=== PATIENT | female | born 1950 | race African-American/Black ===

== ENCOUNTER 2017-03-06 15:47 | Inpatient (IN) | payer MEDICARE, OTHER ==
[~2017-03-06] VITALS: Ht 172.7 cm; Wt 59.0 kg
[2017-03-06] MEDS ORDERED: [UNRECOGNIZED DRUG - REMARK] (16:30)
[2017-03-06 18:05] VITALS: BP 117/74
[2017-03-06 18:24] LABS: BASOPHILS % (AUTO) 0.6 % (0.0-2.0); EOSINOPHILS % (AUTO) 0.1 % (0.0-3.0); LYMPHOCYTES % (AUTO) 18.9 % (20.0-45.0); MEAN CORPUSCULAR HEMOGLOBIN 31.9 PG (27.0-31.0); MEAN CORPUSCULAR HGB CONC 35.2 G/DL (32.0-36.0); MEAN CORPUSCULAR VOLUME 91 FL (80-99); MEAN PLATELET VOLUME 9.6 FL (6.5-10.1); NEUTROPHILS % (AUTO) 71.4 % (45.0-75.0); PLATELET COUNT 285 K/UL (150-450); RED CELL DISTRIBUTION WIDTH 13.3 % (11.6-14.8); WHITE BLOOD COUNT 17.1 K/UL (4.8-10.8)
[2017-03-06 18:39] LABS: CALCIUM 8.9 mg/dL (8.6-10.2); CREATININE 1.2 mg/dL (0.5-0.9); GLOMERULAR FILTRATION RATE 54.9 mL/min (>60); POTASSIUM 4.8 mEQ/L (3.4-4.9); TOTAL PROTEIN 7.1 g/dL (6.6-8.7)
[2017-03-06 18:40] LABS: TROPONIN I < 0.30 ng/mL (<=0.30)
[2017-03-06 18:49] LABS: CKMB 3.2 ng/mL (< 3.8)
--- NOTE | 2017-03-06 19:10 | Emergency Room Report ---
History of Present Illness General Chief Complaint: Generalized Weakness Source: Patient Present Illness HPI 66YOF BIBEMS for "falling out." Friends called EMS because "she hasnt been doing well." Homeless. ?recent incaceration - has wristband Denies PMHx Not eating, drinking Denies trauma Denies ETOH, drug use Allergies: Coded Allergies: No Known Allergies (Unverified , 03/06/17) Patient History Past Medical History: none Past Surgical History: none Pertinent Family History: none Social History: Denies: alcohol use, drug use, smoking Last Menstrual Period: na Now: No Immunizations: UTD Reviewed Nursing Documentation: PMH: Agreed, PSxH: Agreed Nursing Documentation-PMH Past Medical History: No History, Except For Hx Diabetes: Yes Review of Systems All Other Systems: negative except mentioned in HPI Physical Exam Vital Signs Date Time Temp Pulse Resp B/P Pulse Ox O2 Delivery O2 Flow Rate FiO2 03/06/17 15:42 98.4 76 16 132/78 98 Room Air Sp02 EP Interpretation: reviewed, normal General Appearance: normal inspection, well appearing, no apparent distress, alert, non-toxic Head: normocephalic, atraumatic Eyes: bilateral eye EOMI, bilateral eye PERRL ENT: normal ENT inspection, hearing grossly normal, normal voice Neck: normal inspection, full range of motion, supple, no bony tend Respiratory: normal inspection, lungs clear, normal breath sounds, no respiratory distress, no retraction, no wheezing Cardiovascular #1: regular rate, rhythm, no edema Gastrointestinal: normal inspection, normal bowel sounds, non tender, soft, no guarding, no hernia Genitourinary: no CVA tenderness Musculoskeletal: normal inspection, back normal, normal range of motion, Omer' s Sign negative Neurologic: normal inspection, alert, oriented x3, responsive, 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 Afebrile Not systemically sick Leuks 17k No obvious PNA Mild EVIN Hasnt given urine Capitated to [facility] Admitted to Dr Garcia for transfer med/surg at 710pm Advised HOLD on empiric Abx EKG Diagnostic Results Rate: normal Rhythm: NSR ST Segments: no acute changes ASA given to the pt in ED: No Rhythm Strip Diag. Results EP Interpretation: yes Rate: 99 Rhythm: NSR, no PVC's, no ectopy Chest X-Ray Diagnostic Results Chest X-Ray Diagnostic Results : Chest X-Ray Ordered: Yes # of Views/Limited/Complete: 1 View Indication: Other - weakness EP Interpretation: Yes Interpretation: no consolidation, no effusion, no pneumothorax, no acute cardiopulmonary disease Impression: No acute disease Interpreting ER Provider: Electronically signed by Dr Zamora Last Vital Signs Date Time Temp Pulse Resp B/P Pulse Ox O2 Delivery O2 Flow Rate FiO2 03/06/17 18:05 98.3 89 12 117/74 100 Room Air Status: improved Disposition: ADMITTED INPATIENT Condition: Serious Referrals: NOT CHOSEN ANNEMARIE/,REFERRING (PCP) DASHA ZAMORA M.D. Mar 06, 2017 19:10
[2017-03-06] MEDS ORDERED: cefTRIAXone 1 GM in NS 55 ML IVPB ONE (20:15)
--- NOTE | 2017-03-06 21:25 | History and Physical ---
History of Present Illness General Date patient seen: Mar 06, 2017 Reason for Hospitalization: Generalized Weakness Present Illness HPI 66 year old female with hx of homelessness, street drug abuse, was brought in by paramedics because apparently she was feeling week. She was found to have severe leuckocytosis secondary to sepsis and admitted for further work up. she looks chronically ill and malnourished, cachectic. Allergies: Coded Allergies: No Known Allergies (Unverified , 03/06/17) Medication History Miscellaneous Medications [diabetes pill], (Reported) Patient History Healthcare decision maker Resuscitation status Advanced Directive on File Past Medical/Surgical History Past Medical/Surgical History: (1) Diabetes mellitus (2) Drug abuse Review of Systems All Other Systems: negative except mentioned in HPI Physical Exam General Appearance: cachetic Lines, tubes and drains: peripheral HEENT: normocephalic, atraumatic Neck: non-tender, normal alignment Respiratory/Chest: chest wall non-tender, lungs clear Cardiovascular/Chest: normal peripheral pulses, normal rate Abdomen: normal bowel sounds, non tender Extremities: normal range of motion Last 24 Hour Vital Signs Date Time Temp Pulse Resp B/P Pulse Ox O2 Delivery O2 Flow Rate FiO2 03/06/17 18:05 98.3 89 12 117/74 100 Room Air 03/06/17 15:42 98.4 76 16 132/78 98 Room Air Laboratory Tests Test 03/06/17 18:03 White Blood Count 17.1 K/UL (4.8-10.8) H Red Blood Count 3.50 M/UL (4.20-5.40) L Hemoglobin 11.2 G/DL (12.0-16.0) L Hematocrit 31.7 % (37.0-47.0) L Mean Corpuscular Volume 91 FL (80-99) Mean Corpuscular Hemoglobin 31.9 PG (27.0-31.0) H Mean Corpuscular Hemoglobin Concent 35.2 G/DL (32.0-36.0) Red Cell Distribution Width 13.3 % (11.6-14.8) Platelet Count 285 K/UL (150-450) Mean Platelet Volume 9.6 FL (6.5-10.1) Neutrophils (%) (Auto) 71.4 % (45.0-75.0) Lymphocytes (%) (Auto) 18.9 % (20.0-45.0) L Monocytes (%) (Auto) 9.0 % (1.0-10.0) Eosinophils (%) (Auto) 0.1 % (0.0-3.0) Basophils (%) (Auto) 0.6 % (0.0-2.0) Sodium Level 134 mEQ/L (135-145) L Potassium Level 4.8 mEQ/L (3.4-4.9) Chloride Level 91 mEQ/L (98-107) L Carbon Dioxide Level 21 mEQ/L (20-30) Anion Gap 22 (5-15) H Blood Urea Nitrogen 29 mg/dL (7-23) H Creatinine 1.2 mg/dL (0.5-0.9) H Estimat Glomerular Filtration Rate 54.9 mL/min (>60) Glucose Level 167 mg/dL (74-106) H Calcium Level 8.9 mg/dL (8.6-10.2) Total Bilirubin 0.4 mg/dL (0.0-1.2) Aspartate Amino Transf (AST/SGOT) 32 U/L (5-40) Alanine Aminotransferase (ALT/SGPT) 13 U/L (3-33) Alkaline Phosphatase 62 U/L (35-104) Total Creatine Kinase 314 U/L (26-140) H Creatine Kinase MB 3.2 ng/mL (< 3.8) Creatine Kinase MB Relative Index 1.0 Troponin I < 0.30 ng/mL (<=0.30) Total Protein 7.1 g/dL (6.6-8.7) Albumin 3.7 g/dL (3.5-5.2) Globulin 3.4 g/dL Albumin/Globulin Ratio 1.0 (1.0-2.7) Height (Feet): 5 Height (Inches): 8.00 Weight (Pounds): 130 Medications Current Medications Medications (Trade) Dose Ordered Sig/Farzaneh Route PRN Reason Start Time Stop Time Status Last Admin Dose Admin Sodium Chloride (Sodium Chloride 1000ml bag) 1,000 ml @ 999 mls/hr Q1H1M ONCE IV 03/06/17 21:30 03/06/17 22:30 Assessment/Plan Problem List: (1) Sepsis ICD Codes: A41.9 - Sepsis, unspecified organism SNOMED: 41133838 (2) Protein-calorie malnutrition, severe ICD Codes: E43 - Unspecified severe protein-calorie malnutrition SNOMED: 746287457 (3) Diabetes mellitus ICD Codes: E11.9 - Type 2 diabetes mellitus without complications SNOMED: 05580397 (4) Drug abuse ICD Codes: F19.10 - Other psychoactive substance abuse, uncomplicated SNOMED: 72573362 (5) Homelessness ICD Codes: Z59.0 - Homelessness SNOMED: 67655380 Assessment/Plan robb culture IV antibiotics check for HIV, and hepatitis pt/ot YYAO BLACKMAN Mar 06, 2017 21:25
[2017-03-06] MEDS ORDERED: Morphine Sulfate 2mg/ml Inj IVP PRN (21:30)
[2017-03-06] MEDS ORDERED: Nitroglycerin Subl 0.4mg tab (Bottle Of 25) SL PRN (21:30)
[2017-03-06] MEDS ORDERED: DuoNeb 0.5-3(2.5)mg/3ml neb HHN PRN (21:30)
[2017-03-06] MEDS ORDERED: Miralax 17gm pkt ORAL PRN (21:30)
[2017-03-06 21:46] LABS: APPEARANCE,URINE CLEAR; KETONES,URINE 4+ (NEGATIVE); LEUKOCYTE ESTERASE ,URINE 1+ (NEGATIVE); NITRITE,URINE NEGATIVE (NEGATIVE); PH,URINE 5 (4.5-8.0); PROTEIN,URINE 1+ (NEGATIVE); UROBILINOGEN,URINE 1 MG/DL (0.0-1.0)
[2017-03-06 21:58] LABS: BACTERIA,URINE FEW /HPF; SQUAMOUS EPITHELIAL CELL,UR OCCASIONAL /LPF (NONE/OCC); WBC,URINE 0-2 /HPF (0 - 2)
[2017-03-06] MEDS ORDERED: Vancomycin 1gm/D5W 275ml IVPB ONE ×2 (22:00)
[2017-03-06 22:42] VITALS: BP 120/76
[2017-03-07] VITALS (7 sets, daily range): BP systolic 118–123; BP diastolic 52–79
[2017-03-07] MEDS ORDERED: Cefepime 2gm ONE (01:42)
[2017-03-07] MEDS ORDERED: Vancomycin 1gm inj IVPB ONE (01:42)
[2017-03-07] MEDS: Vancomycin 1 GM in D5W 275 ML IVPB SCH ×2 (01:54→02:57)
[2017-03-07 04:55] LABS: BASOPHILS % (AUTO) 0.4 % (0.0-2.0); EOSINOPHILS % (AUTO) 0.1 % (0.0-3.0); LYMPHOCYTES % (AUTO) 20.3 % (20.0-45.0); MEAN CORPUSCULAR HGB CONC 34.2 G/DL (32.0-36.0); MEAN CORPUSCULAR VOLUME 91 FL (80-99); MEAN PLATELET VOLUME 9.8 FL (6.5-10.1); MONOCYTES % (AUTO) 8.8 % (1.0-10.0); NEUTROPHILS % (AUTO) 70.4 % (45.0-75.0); PLATELET COUNT 298 K/UL (150-450); RED BLOOD COUNT 3.38 M/UL (4.20-5.40); RED CELL DISTRIBUTION WIDTH 13.3 % (11.6-14.8); WHITE BLOOD COUNT 14.8 K/UL (4.8-10.8)
[2017-03-07 05:16] LABS: ALANINE AMINOTRANSFERASE 9 U/L (3-33); ANION GAP 19 (5-15); ASPARTATE AMINO TRANSFERASE 18 U/L (5-40); CARBON DIOXIDE 23 mEQ/L (20-30); CHLORIDE 98 mEQ/L (98-107); CREATININE 1.1 mg/dL (0.5-0.9); GLOMERULAR FILTRATION RATE > 60 mL/min (>60); HEMOLYSIS 0; POTASSIUM 3.7 mEQ/L (3.4-4.9); SODIUM 140 mEQ/L (135-145); TOTAL PROTEIN 7.1 g/dL (6.6-8.7)
[2017-03-07] MEDS: Cefepime HCl 2 GM in D5W 110 ML IV SCH (05:18)
[2017-03-07] MEDS: NovoLOG Insulin Flexpen SUBQ SCH ×4 (06:29→20:20)
[2017-03-07] MEDS: Heparin 5000 units/ml inj SUBQ SCH ×2 (08:50→20:20)
--- NOTE | 2017-03-07 09:38 | Diagnostic Imaging Report ---
Indication: SOB Technique: One view of the chest Comparison: none Findings: Lungs and pleural spaces are clear. Heart size is normal. Impression: No acute process
--- NOTE | 2017-03-07 13:56 | Pulmonology Progress Note ---
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 hepatitis panel pending pt;/ot Subjective ROS Limited/Unobtainable: No Interval Events: feeling better Allergies: Coded Allergies: No Known Allergies (Unverified , 03/06/17) Objective Last 24 Hour Vital Signs Date Time Temp Pulse Resp B/P Pulse Ox O2 Delivery O2 Flow Rate FiO2 03/07/17 12:00 96.0 92 20 120/77 100 Room Air 03/07/17 08:40 98.2 92 20 123/69 100 Room Air 03/07/17 07:50 92 16 Room Air 03/07/17 04:00 98.4 20 122/79 100 Room Air 03/07/17 01:53 98.6 97 20 123/52 98 Room Air 03/07/17 01:00 97.8 88 20 118/75 100 Room Air 03/06/17 22:42 98.0 86 18 120/76 100 Room Air 03/06/17 18:05 98.3 89 12 117/74 100 Room Air 03/06/17 15:42 98.4 76 16 132/78 98 Room Air Intake and Output 03/06/17 03/07/17 19:00 07:00 Intake Total 233.3 ml Balance 233.3 ml Intake Oral 0 ml IV Total 233.3 ml # Voids 4 General Appearance: cachetic HEENT: normocephalic, anicteric Respiratory/Chest: chest wall non-tender, lungs clear Breasts: no masses Cardiovascular: normal peripheral pulses Abdomen: normal bowel sounds, soft, non tender Genitourinary: normal external genitalia Extremities: no cyanosis Skin: no rash 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 Laboratory Tests 03/06/17 18:03: White Blood Count 17.1H, Red Blood Count 3.50L, Hemoglobin 11.2L, Hematocrit 31.7L, Mean Corpuscular Volume 91, Mean Corpuscular Hemoglobin 31.9H, Mean Corpuscular Hemoglobin Concent 35.2, Red Cell Distribution Width 13.3, Platelet Count 285, Mean Platelet Volume 9.6, Neutrophils (%) (Auto) 71.4, Lymphocytes (% ) (Auto) 18.9L, Monocytes (%) (Auto) 9.0, Eosinophils (%) (Auto) 0.1, Basophils (%) (Auto) 0.6, Sodium Level 134L, Potassium Level 4.8, Chloride Level 91L, Carbon Dioxide Level 21, Anion Gap 22H, Blood Urea Nitrogen 29H, Creatinine 1.2H , Estimat Glomerular Filtration Rate 54.9, Glucose Level 167H, Calcium Level 8.9 , Total Bilirubin 0.4, Aspartate Amino Transf (AST/SGOT) 32, Alanine Aminotransferase (ALT/SGPT) 13, Alkaline Phosphatase 62, Total Creatine Kinase 314H, Creatine Kinase MB 3.2, Creatine Kinase MB Relative Index 1.0, Troponin I < 0.30, Total Protein 7.1, Albumin 3.7, Globulin 3.4, Albumin/Globulin Ratio 1.0 03/06/17 21:10: Urine Color Yellow, Urine Appearance Clear, Urine pH 5, Urine Specific [place] 1.020, Urine Protein 1+H, Urine Glucose (UA) Negative, Urine Ketones 4+H, Urine Occult Blood 1+H, Urine Nitrite Negative, Urine Bilirubin Negative, Urine Urobilinogen 1H, Urine Leukocyte Esterase 1+H, Urine RBC 2-4H, Urine WBC 0-2, Urine Squamous Epithelial Cells Occasional, Urine Bacteria Few 03/07/17 02:50: White Blood Count 14.8H, Red Blood Count 3.38L, Hemoglobin 10.5L, Hematocrit 30.6L, Mean Corpuscular Volume 91, Mean Corpuscular Hemoglobin 31.0, Mean Corpuscular Hemoglobin Concent 34.2, Red Cell Distribution Width 13.3, Platelet Count 298, Mean Platelet Volume 9.8, Neutrophils (%) (Auto) 70.4, Lymphocytes (% ) (Auto) 20.3, Monocytes (%) (Auto) 8.8, Eosinophils (%) (Auto) 0.1, Basophils ( %) (Auto) 0.4, Sodium Level 140, Potassium Level 3.7, Chloride Level 98, Carbon Dioxide Level 23, Anion Gap 19H, Blood Urea Nitrogen 23, Creatinine 1.1H, Estimat Glomerular Filtration Rate > 60, Glucose Level 152H, Calcium Level 9.0, Total Bilirubin 0.5, Aspartate Amino Transf (AST/SGOT) 18, Alanine Aminotransferase (ALT/SGPT) 9, Alkaline Phosphatase 79, Total Protein 7.1, Albumin 3.6, Globulin 3.5, Albumin/Globulin Ratio 1.0 Current Medications Medications (Trade) Dose Ordered Sig/Farzaneh Route PRN Reason Start Time Stop Time Status Last Admin Dose Admin Acetaminophen (Tylenol) 650 mg Q4H PRN ORAL T>100.5 03/06/17 21:30 04/05/17 21:29 Albuterol/ Ipratropium 3 ml 3 ml Q4H PRN HHN Shortness of Breath 03/06/17 21:30 03/11/17 21:29 Cefepime HCl 2 gm/ Dextrose 110 ml @ 220 mls/hr Q24H IV 03/07/17 04:00 03/14/17 03:59 03/07/17 05:18 Dextrose (Dextrose 50%) STAT PRN IV Hypoglycemia 03/06/17 21:30 04/05/17 21:29 Heparin Sodium (Porcine) (Heparin 5000 units/ml) 5,000 units EVERY 12 HOURS SUBQ 03/07/17 09:00 04/06/17 08:59 03/07/17 08:50 Insulin Aspart (NovoLOG) BEFORE MEALS AND HS SUBQ 03/07/17 06:30 04/06/17 06:29 03/07/17 06:29 Morphine Sulfate (Morphine Sulfate) 2 mg Q4H PRN IVP Moderate Pain (Pain Scale 4-6) 03/06/17 21:30 03/13/17 21:29 Nitroglycerin (Ntg) 0.4 mg Q5MIN X 3 DOSES PRN SL Prn Chest Pain 03/06/17 21:30 04/05/17 21:29 Ondansetron HCl (Zofran) 4 mg Q6H PRN IVP Nausea & Vomiting 03/06/17 21:30 04/05/17 21:29 Polyethylene Glycol (Miralax) 17 gm DAILYPRN PRN ORAL Constipation 03/06/17 21:30 04/05/17 21:29 Temazepam (Restoril) 15 mg HSPRN PRN ORAL Insomnia 03/06/17 21:30 03/13/17 21:29 Vancomycin HCl (Vanco rx to dose) 1 ea DAILY PRN MISC . 03/06/17 22:00 04/05/17 21:59 Vancomycin HCl/ Dextrose (Vancomycin/D5W) 275 ml @ 183.3 mls/ hr Q24H IVPB 8/15/17 02:00 03/12/17 01:59 03/07/17 02:57 YAYO BLACKMAN Mar 07, 2017 13:56
--- NOTE | 2017-03-07 16:48 | Cardiology Report ---
APPROVED REPORT EKG Measurement Heart [id number] [place] [id number] Normal sinus rhythm Left axis deviation Septal infarct, age undetermined Abnormal ECG
[2017-03-08] VITALS: BP 120/72
[2017-03-08] MEDS: Vancomycin 1250mg/D5W 250ml IVPB SCH (01:50)
[2017-03-08] MEDS ORDERED: Cefepime 2gm ONE (03:48)
[2017-03-08] MEDS: Cefepime HCl 2 GM in D5W 110 ML IV SCH (03:54)
[2017-03-08] MEDS: NovoLOG Insulin Flexpen SUBQ SCH ×4 (06:21→20:48)
[2017-03-08 07:07] LABS: INR 1.3 (0.9-1.1); MEAN CORPUSCULAR HEMOGLOBIN 30.1 PG (27.0-31.0); MEAN CORPUSCULAR HGB CONC 33.4 G/DL (32.0-36.0); MEAN CORPUSCULAR VOLUME 90 FL (80-99); MEAN PLATELET VOLUME 9.3 FL (6.5-10.1); PLATELET COUNT 285 K/UL (150-450); PROTHROMBIN TIME 13.4 SEC (9.30-11.50); RED BLOOD COUNT 3.19 M/UL (4.20-5.40); RED CELL DISTRIBUTION WIDTH 13.2 % (11.6-14.8); WHITE BLOOD COUNT 7.8 K/UL (4.8-10.8)
[2017-03-08 08:00] VITALS: BP_DIAS 125
[2017-03-08] MEDS: Heparin 5000 units/ml inj SUBQ SCH ×2 (08:31→20:50)
[2017-03-08 08:36] LABS: BASOPHILS % (MANUAL) 1 % (0-2); LYMPHOCYTES % (MANUAL) 41 % (20-45); NEUTROPHILS % (MANUAL) 43 % (45-75); TOTAL CELLS COUNTED 100
[2017-03-08 08:38] LABS: ANISOCYTOSIS 1+; OVALOCYTES 1+
[2017-03-08 09:35] LABS: ERYTHROCYTE SEDIMENTATION RATE 52 MM/HR (0-30); PATH BLOOD SMEAR/OMC SENT TO PATHOLOGIST
[2017-03-08 10:44] LABS: BAND NEUTROPHILS % (MANUAL) 0 % (0-8); EOSINOPHILS % (MANUAL) 0 % (0-3); PLATELET ESTIMATE ADEQUATE; RETICULOCYTE COUNT 0.7 % (0.0-2.0)
[2017-03-08 11:22] LABS: PLATELET MORPHOLOGY NORMAL
[2017-03-08 11:55] VITALS: BP 113/68
[2017-03-08 16:00] VITALS: BP 119/71
--- NOTE | 2017-03-08 16:00 | Infectious Diseases Prog Note ---
Infectious Disease Consult Infectious Disease Consult Infectious Disease Consult INFECTIOUS DISEASE CONSULTATION DATE OF CONSULTATION: 08Mar2017 CONSULTING PHYSICIAN: Wally Islas M.D., [facility], [facility] Covering for Dr. Lockhart REFERRING PHYSICIAN: Dr. Faraz Chang REASON FOR CONSULTATION: Leukocytosis HISTORY OF PRESENT ILLNESS: 66 y/o AAF h/o active inhalational crack use, brought in by ambulance for being found down, noted to be afebrile but had leukocytosis. On day #2 empiric IV vancomycin and cefepime as w/u ongoing. patient denies any fevers, chills, cough, sob, chest pain, h/a, visual changes, hemoptysis, abdominal pain, diarrhea, melena, dysuria, urgency, or frequency, and denies any musculoskeletal pain. is homeless, no routine medical care, and although endorses ongoing inhaled crack use, denies IVDU. labs on admission notable for leukocytosis of 17 and an anion gap metabolic acidosis with significant urinary ketones. CXR unremarkable. U/A not suggestive of UTI. PAST MEDICAL HISTORY: denies any known medical problems Past Surgical History: non reported ALLERGIES: No known drug allergies. ANTIBIOTICS: IV vancomycin and cefepime (06mar2017-- Home and hospitalized medications reviewed. SOCIAL HISTORY: homeless, denies etoh use. + inhaled crack. FAMILY HISTORY: Noncontributory REVIEW OF SYSTEMS: 11 point ROS negative except for that mentioned in HPI above. PHYSICAL EXAM: VITAL SIGNS: afebrile, normotensive, not tachycardic GEN: awake, alert, non toxic appearing, thin HEENT: Mild pale conjunctiva. oral mucosa dry, pharynx w/o exudate or effusion. No icterus. Head normocephalic, neck supple. NECK: No cervical LAD CHEST: diffuse end-expiratory wheezes HEART: S1 and S2, no murmurs, no rubs. ABDOMEN: soft, non tender, non distended, normoactive bowel sounds. no cva tenderness EXTREMITIES: No cyanosis, no clubbing, no edema. NEUROLOGIC: Awake, alert, no focal neurologic motor deficits. : no external lesions LYMPH: no LAD RECTAL: deferred LABORATORY AND DIAGNOSTIC DATA: WBC 7.8 (down from 17.1), hgb 9.6, plt 285, mcv 90, N 43%, 15% monocytes ESR 52mm/hr retic 0.7% bmp 140/3.7/98/23/BUN 23/SCr 1.1/gluc 152 ca 9.0, Iron 70, iron sats 34% t bili 0.5, ast 18, alt 9, alk phos 79 CK 314, trop <0.3 prot 7.1, alb 3.6, LDH 320 u/a 1.020/1+ prot/4+ket/neg gluc/1+ blood/1+ LE/0-2 WBC PTT 28, PT 13.4 viral hepatitis panel negative HIV pending ucx: 10-20k cfu gpc 03/07 blood cx ngtd RADIOLOGY: Patient : RAMIRO MUHAMMAD Referring Physician: DASHA ZAMORA M.D. ID Number: [id number] Service Date: 03/06/17 : 1950 Report Date: 03/06/17 Gender: F Accession No.: [id number] Location: 4W Procedure: XRAY Chest 1v Indication: SOB Technique: One view of the chest Comparison: none Findings: Lungs and pleural spaces are clear. Heart size is normal. Impression: No acute process ASSESSMENT AND PLAN ASSESSMENT: 1) Leukocytosis, resolved on empiric IV vanc/cefepime D#2 2) inhalational crack use, + wheezes on exam 3) CXR and exam negative for pneumonia 4) u/a w/o pyuria, and ucx not consistent with UTI, pending finalization 5) starvation ketosis 6) anion gap metabolic acidosis 7) mild rhabdomyolysis (CK 314), musculoskeletal exam unremarkable 8) elevated LDH of uncertain significance 9) viral hepatitis panel negative 10) blood cx ngtd at >24 hrs 11) superficial healed scar on leg, no evidence of cellulitis PLAN: HIV rapid Ab screen repeat CPK and LDH, if not decreasing, plan for CT a/p to r/o occult process f/u urine culture results UDS may consider d/c vanc and cefepime tommorrow if infectious w/u continues to be negative Thank you for this consultation. Will continue to follow. Covering for Dr. Lockhart, please call me with questions, Wally Islas M.D. Mar 08, 2017 16:00
--- NOTE | 2017-03-08 19:52 | Pulmonology Progress Note ---
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 pending pt;/ot wbc normal now, afebrile dc in 1-2 days Subjective ROS Limited/Unobtainable: No Constitutional: Reports: no symptoms HEENT: Repors: no symptoms Respiratory: Reports: no symptoms Allergies: Coded Allergies: No Known Allergies (Unverified , 03/06/17) Objective Last 24 Hour Vital Signs Date Time Temp Pulse Resp B/P Pulse Ox O2 Delivery O2 Flow Rate FiO2 03/08/17 16:00 98.8 16 119/71 100 Room Air 03/08/17 11:55 97.3 66 20 113/68 97 Room Air 03/08/17 08:00 97.8 97 17 /125 100 03/08/17 07:44 74 16 Room Air 03/08/17 00:00 98.2 97 20 120/72 98 Room Air 03/07/17 20:00 98.7 91 18 123/72 100 Room Air Intake and Output 03/07/17 03/08/17 19:00 07:00 Intake Total 860.000 ml Balance 860.000 ml IV Total 360.000 ml Other 500 ml # Voids 2 General Appearance: WD/WN HEENT: normocephalic, atraumatic Respiratory/Chest: chest wall non-tender, lungs clear Breasts: no masses Cardiovascular: normal peripheral pulses, normal rate Abdomen: normal bowel sounds, no organomegaly Genitourinary: normal external genitalia Extremities: no cyanosis Microbiology Date/Time Source Procedure Growth Status 03/07/17 02:55 Blood Blood Culture - Preliminary NO GROWTH AFTER 24 HOURS Resulted 03/07/17 02:50 Blood Blood Culture - Preliminary NO GROWTH AFTER 24 HOURS Resulted 03/07/17 10:56 Indwelling Cath Urine Culture - Preliminary Gram Positive Cocci Resulted Laboratory Tests 03/08/17 04:40: White Blood Count 7.8, Red Blood Count 3.19L, Hemoglobin 9.6L, Hematocrit 28.8L , Mean Corpuscular Volume 90, Mean Corpuscular Hemoglobin 30.1, Mean Corpuscular Hemoglobin Concent 33.4, Red Cell Distribution Width 13.2, Platelet Count 285, Mean Platelet Volume 9.3, Neutrophils (%) (Auto) , Lymphocytes (%) ( Auto) , Monocytes (%) (Auto) , Eosinophils (%) (Auto) , Basophils (%) (Auto) , Differential Total Cells Counted 100, Neutrophils % (Manual) 43L, Lymphocytes % (Manual) 41, Monocytes % (Manual) 15H, Eosinophils % (Manual) 0, Basophils % ( Manual) 1, Band Neutrophils 0, Platelet Estimate Adequate, Platelet Morphology Normal, Anisocytosis 1+, Ovalocytes 1+, Erythrocyte Sedimentation Rate 52H, Reticulocyte Count 0.7, Prothrombin Time 13.4H, Prothromb Time International Ratio 1.3H, Activated Partial Thromboplast Time 28, Iron Level 70, Total Iron Binding Capacity 203L, Percent Iron Saturation 34, Unsaturated Iron Binding 133 , Lactate Dehydrogenase 320H, Carcinoembryonic Antigen 3.9H, Vitamin B12 Level 1995H, Folate [Pending], HIV (1&2) Antibody Rapid Negative 03/08/17 04:45: Total Creatine Kinase 130, Acetone, Qualitative [Pending] Current Medications Medications (Trade) Dose Ordered Sig/Farzaneh Route PRN Reason Start Time Stop Time Status Last Admin Dose Admin Acetaminophen (Tylenol) 650 mg Q4H PRN ORAL T>100.5 03/06/17 21:30 04/05/17 21:29 Albuterol/ Ipratropium 3 ml 3 ml Q4H PRN HHN Shortness of Breath 03/06/17 21:30 03/11/17 21:29 Cefepime HCl/ Dextrose (Maxipime/D5W) 110 ml @ 220 mls/hr Q24H IV 03/07/17 04:00 03/14/17 03:59 03/08/17 03:54 Dextrose (Dextrose 50%) STAT PRN IV Hypoglycemia 03/06/17 21:30 04/05/17 21:29 Heparin Sodium (Porcine) (Heparin 5000 units/ml) 5,000 units EVERY 12 HOURS SUBQ 03/07/17 09:00 04/06/17 08:59 03/07/17 20:20 Insulin Aspart (NovoLOG) BEFORE MEALS AND HS SUBQ 03/07/17 06:30 04/06/17 06:29 03/08/17 16:46 Morphine Sulfate (Morphine Sulfate) 2 mg Q4H PRN IVP Moderate Pain (Pain Scale 4-6) 03/06/17 21:30 03/13/17 21:29 Nitroglycerin (Ntg) 0.4 mg Q5MIN X 3 DOSES PRN SL Prn Chest Pain 03/06/17 21:30 04/05/17 21:29 Ondansetron HCl (Zofran) 4 mg Q6H PRN IVP Nausea & Vomiting 03/06/17 21:30 04/05/17 21:29 Polyethylene Glycol (Miralax) 17 gm DAILYPRN PRN ORAL Constipation 03/06/17 21:30 04/05/17 21:29 Temazepam (Restoril) 15 mg HSPRN PRN ORAL Insomnia 03/06/17 21:30 03/13/17 21:29 Vancomycin HCl 1 ea 1 ea DAILY PRN MISC . 03/06/17 22:00 04/05/17 21:59 Vancomycin HCl/ Dextrose (Vancomycin 1250mg/D5W 250ml) 250 ml @ 166.667 mls/hr Q24H IVPB 03/08/17 02:00 03/13/17 01:59 03/08/17 01:50 YAYO BLACKMAN Mar 08, 2017 19:52
[2017-03-08 20:00] VITALS: BP 131/78
[2017-03-09] VITALS: BP 124/90
[2017-03-09] MEDS: Vancomycin 1250mg/D5W 250ml IVPB SCH (02:00)
[2017-03-09] MEDS ORDERED: Vancomycin 750mg Inj IVPB ONE (03:24)
[2017-03-09] MEDS: Vancomycin 750mg/D5W 275ml IVPB SCH ×4 (03:31→15:36)
[2017-03-09 04:00] VITALS: BP 128/84
[2017-03-09] MEDS: Cefepime HCl 2 GM in D5W 110 ML IV SCH (05:29)
[2017-03-09] MEDS: NovoLOG Insulin Flexpen SUBQ SCH ×4 (05:38→21:56)
[2017-03-09 07:45] VITALS: BP 97/69
[2017-03-09] MEDS: Heparin 5000 units/ml inj SUBQ SCH ×2 (08:55→21:45)
[2017-03-09 10:35] LABS: OTHERS PATHOLOGIST COMMENT
[2017-03-09 11:34] VITALS: BP 110/63
[2017-03-09] MEDS ORDERED: NOVOLOG100 UNITS1 SUBQ (15:55)
--- NOTE | 2017-03-09 15:57 | Pulmonology Progress Note ---
Assessment/Plan Problems: (1) Sepsis (2) Protein-calorie malnutrition, severe (3) Diabetes mellitus (4) Drug abuse (5) Homelessness Assessment/Plan continue abx as per [place] social service manager HIv and hepatitis panel pending pt;/ot wbc normal now, afebrile dc when bed available Subjective ROS Limited/Unobtainable: No Constitutional: Reports: no symptoms HEENT: Repors: no symptoms Allergies: Coded Allergies: No Known Allergies (Unverified , 03/06/17) Objective Last 24 Hour Vital Signs Date Time Temp Pulse Resp B/P Pulse Ox O2 Delivery O2 Flow Rate FiO2 03/09/17 11:34 98.0 60 19 110/63 100 Room Air 03/09/17 09:07 82 18 Room Air 03/09/17 07:45 97.9 82 19 97/69 100 Room Air 03/09/17 04:00 97.9 85 20 128/84 100 Room Air 03/09/17 00:00 98.0 86 20 124/90 100 Room Air 03/08/17 21:01 75 20 Room Air 03/08/17 20:00 98.7 74 20 131/78 100 Room Air 03/08/17 16:00 98.8 16 119/71 100 Room Air Intake and Output 03/08/17 03/09/17 19:00 07:00 Intake Total 480 ml 635.000 ml Balance 480 ml 635.000 ml Intake Oral 480 ml 250 ml IV Total 385.000 ml # Voids 1 # Bowel Movements 1 General Appearance: WD/WN HEENT: normocephalic Respiratory/Chest: chest wall non-tender, lungs clear Breasts: no masses Cardiovascular: normal peripheral pulses Abdomen: normal bowel sounds, soft, non tender Genitourinary: normal external genitalia Extremities: no cyanosis Skin: no rash Microbiology Date/Time Source Procedure Growth Status 03/07/17 02:55 Blood Blood Culture - Preliminary NO GROWTH AFTER 48 HOURS Resulted 03/07/17 02:50 Blood Blood Culture - Preliminary NO GROWTH AFTER 48 HOURS Resulted 03/06/17 23:00 Nasal Nares MRSA Culture - Final NO METHICILLIN RESISTANT STAPH AUREUS... Complete 03/07/17 10:56 Indwelling Cath Urine Culture - Final Staphylococcus Aureus Complete 03/06/17 23:00 Rectum VRE Culture - Final NO VANCOMYCIN RESISTANT ENTEROCOCCUS ... Complete Laboratory Tests 03/09/17 01:35: Vancomycin Level Trough 7.5 Current Medications Medications (Trade) Dose Ordered Sig/Farzaneh Route PRN Reason Start Time Stop Time Status Last Admin Dose Admin Acetaminophen (Tylenol) 650 mg Q4H PRN ORAL T>100.5 03/06/17 21:30 04/05/17 21:29 Albuterol/ Ipratropium 3 ml 3 ml Q4H PRN HHN Shortness of Breath 03/06/17 21:30 03/11/17 21:29 Cefepime HCl/ Dextrose (Maxipime/D5W) 110 ml @ 220 mls/hr Q24H IV 03/07/17 04:00 03/14/17 03:59 03/09/17 05:29 Dextrose (Dextrose 50%) STAT PRN IV Hypoglycemia 03/06/17 21:30 04/05/17 21:29 Heparin Sodium (Porcine) (Heparin 5000 units/ml) 5,000 units EVERY 12 HOURS SUBQ 03/07/17 09:00 04/06/17 08:59 03/09/17 08:55 Insulin Aspart (NovoLOG) BEFORE MEALS AND HS SUBQ 03/07/17 06:30 04/06/17 06:29 03/09/17 11:50 Morphine Sulfate (Morphine Sulfate) 2 mg Q4H PRN IVP Moderate Pain (Pain Scale 4-6) 03/06/17 21:30 03/13/17 21:29 Nitroglycerin (Ntg) 0.4 mg Q5MIN X 3 DOSES PRN SL Prn Chest Pain 03/06/17 21:30 04/05/17 21:29 Ondansetron HCl (Zofran) 4 mg Q6H PRN IVP Nausea & Vomiting 03/06/17 21:30 04/05/17 21:29 Polyethylene Glycol (Miralax) 17 gm DAILYPRN PRN ORAL Constipation 03/06/17 21:30 04/05/17 21:29 Temazepam (Restoril) 15 mg HSPRN PRN ORAL Insomnia 03/06/17 21:30 03/13/17 21:29 Vancomycin HCl 1 ea 1 ea DAILY PRN MISC . 03/06/17 22:00 04/05/17 21:59 Vancomycin HCl/ Dextrose (Vancomycin/D5W) 275 ml @ 183.708 mls/hr Q12H IVPB 03/09/17 03:00 03/14/17 02:59 03/09/17 15:36 YAYO BLACKMAN Mar 09, 2017 15:57
[2017-03-09 16:00] VITALS: BP 117/76
--- NOTE | 2017-03-09 17:30 | Infectious Diseases Prog Note ---
Assessment/Plan Assessment/Plan Assessment 1) Leukocytosis, resolved on empiric IV vanc/cefepime D#3 2) inhalational crack use, + wheezes on exam 3) CXR and exam negative for pneumonia 4) u/a w/o pyuria, and ucx not consistent with UTI, but cx growing MSSA concerning for IE (intravascular source) in this homeless patient with drug abuse, despite 8/15 blood cx ngtd 5) starvation ketosis 6) anion gap metabolic acidosis 7) mild rhabdomyolysis (CK 314), musculoskeletal exam unremarkable; resolved on repeat 8) elevated LDH of uncertain significance 9) viral hepatitis panel negative 10) blood cx ngtd at >48 hrs 11) superficial healed scar on leg, no evidence of cellulitis 12) HIV screen negative PLAN: D/c IV vancomycin and cefepime currently on D#3 Start Cefazolin 2gm IV q8hr, consider this d#3 of therapy TTE to r/o obvious vegetation Renal u/s to r/o acute lobar nephronia which can be devoid of pyuria. If TTE negative and renal u/s unremarkable, can d/c cefazolin tommorrow monitor serum CO2, repeat BMP now Monitor CBC f/u 8/15 blood cx result Subjective Constitutional: Reports: no symptoms Cardiovascular: Reports: no symptoms Allergies: Coded Allergies: No Known Allergies (Unverified , 03/06/17) Objective Vital Signs Last 24 Hour Vital Signs Date Time Temp Pulse Resp B/P Pulse Ox O2 Delivery O2 Flow Rate FiO2 03/09/17 16:00 98.4 72 20 117/76 100 Room Air 03/09/17 11:34 98.0 60 19 110/63 100 Room Air 03/09/17 09:07 82 18 Room Air 03/09/17 07:45 97.9 82 19 97/69 100 Room Air 03/09/17 04:00 97.9 85 20 128/84 100 Room Air 03/09/17 00:00 98.0 86 20 124/90 100 Room Air 03/08/17 21:01 75 20 Room Air 03/08/17 20:00 98.7 74 20 131/78 100 Room Air Height (Feet): 5 Height (Inches): 8.00 Weight (Pounds): 130 Objective GEN: awake, alert, non toxic appearing, thin HEENT: Mild pale conjunctiva. oral mucosa dry, pharynx w/o exudate or effusion. No icterus. Head normocephalic, neck supple. NECK: No cervical LAD CHEST: diffuse end-expiratory wheezes HEART: S1 and S2, no murmurs, no rubs. ABDOMEN: soft, non tender, non distended, normoactive bowel sounds. no cva tenderness EXTREMITIES: No cyanosis, no clubbing, no edema. NEUROLOGIC: Awake, alert, no focal neurologic motor deficits. : no external lesions LYMPH: no LAD RECTAL: deferred Microbiology Date/Time Source Procedure Growth Status 03/07/17 02:55 Blood Blood Culture - Preliminary NO GROWTH AFTER 48 HOURS Resulted 03/07/17 02:50 Blood Blood Culture - Preliminary NO GROWTH AFTER 48 HOURS Resulted 03/06/17 23:00 Nasal Nares MRSA Culture - Final NO METHICILLIN RESISTANT STAPH AUREUS... Complete 03/07/17 10:56 Indwelling Cath Urine Culture - Final Staphylococcus Aureus Complete 03/06/17 23:00 Rectum VRE Culture - Final NO VANCOMYCIN RESISTANT ENTEROCOCCUS ... Complete Laboratory Tests Test 03/09/17 01:35 Vancomycin Level Trough 7.5 ug/mL (5.0-12.0) Current Medications Medications (Trade) Dose Ordered Sig/Farzaneh Route PRN Reason Start Time Stop Time Status Last Admin Dose Admin Acetaminophen (Tylenol) 650 mg Q4H PRN ORAL T>100.5 03/06/17 21:30 04/05/17 21:29 Albuterol/ Ipratropium 3 ml 3 ml Q4H PRN HHN Shortness of Breath 03/06/17 21:30 03/11/17 21:29 Cefepime HCl/ Dextrose (Maxipime/D5W) 110 ml @ 220 mls/hr Q24H IV 03/07/17 04:00 03/14/17 03:59 03/09/17 05:29 Dextrose (Dextrose 50%) STAT PRN IV Hypoglycemia 03/06/17 21:30 04/05/17 21:29 Heparin Sodium (Porcine) (Heparin 5000 units/ml) 5,000 units EVERY 12 HOURS SUBQ 03/07/17 09:00 04/06/17 08:59 03/09/17 08:55 Insulin Aspart (NovoLOG) BEFORE MEALS AND HS SUBQ 03/07/17 06:30 04/06/17 06:29 03/09/17 16:47 Morphine Sulfate (Morphine Sulfate) 2 mg Q4H PRN IVP Moderate Pain (Pain Scale 4-6) 03/06/17 21:30 03/13/17 21:29 Nitroglycerin (Ntg) 0.4 mg Q5MIN X 3 DOSES PRN SL Prn Chest Pain 03/06/17 21:30 04/05/17 21:29 Ondansetron HCl (Zofran) 4 mg Q6H PRN IVP Nausea & Vomiting 03/06/17 21:30 04/05/17 21:29 Polyethylene Glycol (Miralax) 17 gm DAILYPRN PRN ORAL Constipation 03/06/17 21:30 04/05/17 21:29 Temazepam (Restoril) 15 mg HSPRN PRN ORAL Insomnia 03/06/17 21:30 03/13/17 21:29 Vancomycin HCl 1 ea 1 ea DAILY PRN MISC . 03/06/17 22:00 04/05/17 21:59 Vancomycin HCl/ Dextrose (Vancomycin/D5W) 275 ml @ 183.708 mls/hr Q12H IVPB 03/09/17 03:00 03/14/17 02:59 03/09/17 15:36 Wally Islas M.D. Mar 09, 2017 17:30
[2017-03-09 18:26] LABS: ANION GAP 11 (5-15); CALCIUM 8.2 mg/dL (8.6-10.2); CARBON DIOXIDE 25 mEQ/L (20-30); CHLORIDE 94 mEQ/L (98-107); CREATININE 0.8 mg/dL (0.5-0.9); GLOMERULAR FILTRATION RATE > 60 mL/min (>60); HEMOLYSIS 2; POTASSIUM 3.2 mEQ/L (3.4-4.9); SODIUM 130 mEQ/L (135-145)
[2017-03-09 20:00] VITALS: BP 111/71
[2017-03-09] MEDS: ceFAZolin 2gm/50ml Premix 50 ML IV SCH (21:42)
[2017-03-09] MEDS ORDERED: ceFAZolin sod 2 GM in D5W 110 ML IVPB SCH (22:00)
[2017-03-10] VITALS: BP 108/64
[2017-03-10 03:57] VITALS: BP 119/84
[2017-03-10] MEDS: ceFAZolin 2gm/50ml Premix 50 ML IV SCH ×3 (05:47→22:00)
[2017-03-10] MEDS: NovoLOG Insulin Flexpen SUBQ SCH ×4 (05:48→21:35)
[2017-03-10 07:35] VITALS: BP 103/66
--- NOTE | 2017-03-10 08:27 | Pulmonology Progress Note ---
Assessment/Plan Assessment/Plan ASSESSMENT sepsis UTi with Staph aureus DM drug abuse/cocaine homeless severe protein calorie malnutrition metabolic acidosis mil rhabdo-resolved anemia of chronic disease EVIN likely 2 to mild rhabdo and dehydration -resolved PLAN OF CARE MS floor urine cx + Staph aureus abx iD follows renal US with Equivocal focal areas of increased attenuation within the right renal parenchyma. Nonspecific, could represent areas of inflammation or mass. Mild right hydronephrosis CT A/P pending SHANNON with pEF 55-60% and RVSP of 33 no discrete evidence of vegetation noted blood cx negative preliminary O2 HHN prn CXR negative for acute CP pathology BS management with SS of insulin DVT prophayxlis SW for placement PT/OT HIV and hep panel negative CK down to normal , no evidence of muscle injury EVIN injury resolved, was likely due to possible dehydration and mild rhabdo monitor HH, transfuse prn with goal to keep Hgb above 7 anemia work up with stable iron elevated CEA- 3.9 dc plan when placement found case discussed and evaluated by supervising physician Subjective Allergies: Coded Allergies: No Known Allergies (Unverified , 03/06/17) Subjective leukocytosis resolved afebrile awaiting for placement Objective Last 24 Hour Vital Signs Date Time Temp Pulse Resp B/P Pulse Ox O2 Delivery O2 Flow Rate FiO2 03/10/17 07:35 97.9 85 19 103/66 96 Room Air 03/10/17 03:57 98.1 75 18 119/84 100 Room Air 03/10/17 00:00 97.8 85 18 108/64 100 Room Air 03/09/17 21:24 68 16 Room Air 21 03/09/17 20:00 98.0 71 18 111/71 100 Room Air 03/09/17 16:00 98.4 72 20 117/76 100 Room Air 03/09/17 11:34 98.0 60 19 110/63 100 Room Air 03/09/17 09:07 82 18 Room Air Intake and Output 03/09/17 03/10/17 19:00 07:00 Intake Total 690 ml 100 ml Balance 690 ml 100 ml Intake Oral 690 ml IV Total 100 ml # Voids 4 2 # Bowel Movements 1 General Appearance: no acute distress, cachetic, other - A/A/O x 3 HEENT: normocephalic, atraumatic, anicteric, mucous membranes moist Respiratory/Chest: lungs clear, no respiratory distress, no accessory muscle use Cardiovascular: normal peripheral pulses, normal rate, regular rhythm Abdomen: soft, non tender, non distended Genitourinary: normal external genitalia Extremities: no edema, pedal pulses normal Neurologic/Psychiatric: no motor/sensory deficits, alert, oriented x 3, responsive Musculoskeletal: normal muscle bulk Microbiology Date/Time Source Procedure Growth Status 03/07/17 10:56 Indwelling Cath Urine Culture - Final Staphylococcus Aureus Complete Laboratory Tests 03/09/17 17:40: Sodium Level 130L, Potassium Level 3.2L, Chloride Level 94L, Carbon Dioxide Level 25, Anion Gap 11, Blood Urea Nitrogen 6L, Creatinine 0.8, Estimat Glomerular Filtration Rate > 60, Glucose Level 179H, Calcium Level 8.2L Current Medications Medications (Trade) Dose Ordered Sig/Farzaneh Route PRN Reason Start Time Stop Time Status Last Admin Dose Admin Acetaminophen (Tylenol) 650 mg Q4H PRN ORAL T>100.5 03/06/17 21:30 04/05/17 21:29 Albuterol/ Ipratropium (DuoNeb 0.5-3(2.5)mg/3ml) 3 ml Q4H PRN HHN Shortness of Breath 03/06/17 21:30 03/11/17 21:29 Cefazolin Sodium (Ancef 2gm/50ml premix) 50 ml @ 220 mls/hr Q8HR IV 03/09/17 22:00 03/14/17 21:59 03/10/17 05:47 Dextrose STAT PRN IV Hypoglycemia 03/06/17 21:30 04/05/17 21:29 Heparin Sodium (Porcine) (Heparin 5000 units/ml) 5,000 units EVERY 12 HOURS SUBQ 03/07/17 09:00 04/06/17 08:59 03/09/17 21:45 Insulin Aspart (NovoLOG) BEFORE MEALS AND HS SUBQ 03/07/17 06:30 04/06/17 06:29 03/10/17 05:48 Morphine Sulfate (Morphine Sulfate) 2 mg Q4H PRN IVP Moderate Pain (Pain Scale 4-6) 03/06/17 21:30 03/13/17 21:29 Nitroglycerin (Ntg) 0.4 mg Q5MIN X 3 DOSES PRN SL Prn Chest Pain 03/06/17 21:30 04/05/17 21:29 Ondansetron HCl (Zofran) 4 mg Q6H PRN IVP Nausea & Vomiting 03/06/17 21:30 04/05/17 21:29 Polyethylene Glycol (Miralax) 17 gm DAILYPRN PRN ORAL Constipation 03/06/17 21:30 04/05/17 21:29 Temazepam (Restoril) 15 mg HSPRN PRN ORAL Insomnia 03/06/17 21:30 03/13/17 21:29 [facility] NP Mar 10, 2017 08:27
[2017-03-10] MEDS: Heparin 5000 units/ml inj SUBQ SCH ×2 (08:47→21:34)
--- NOTE | 2017-03-10 10:38 | Diagnostic Imaging Report ---
Indication: Abnormal renal function tests Technique: Grayscale and duplex images of the kidneys, retroperitoneum, and bladder were obtained. Comparison:None Findings: Right kidney measures 12.2 cm in length. Left kidney could not be identified. Right kidney demonstrates normal echogenicity. There is mild right hydronephrosis. Equivocal small focal areas of increased echogenicity are seen centrally within the right renal parenchyma. Normal vascularity is demonstrated. Normal inferior vena cava. Bladder is empty. Impression: Equivocal focal areas of increased attenuation within the right renal parenchyma. Nonspecific, could represent areas of inflammation or mass. Further evaluation with CT should be considered. Mild right hydronephrosis Nonvisualized left kidney. Correlate with surgical history Empty bladder
[2017-03-10 11:32] VITALS: BP 117/73
[2017-03-10] MEDS ORDERED: D5W 275ml ONE ×2 (11:56→22:22)
[2017-03-10] MEDS ORDERED: NS 275ml ONE ×3 (11:56→22:22)
[2017-03-10] MEDS ORDERED: Tubing IV Secondary IV ONE ×2 (11:56→22:22)
--- NOTE | 2017-03-10 15:40 | Infectious Diseases Prog Note ---
Assessment/Plan Assessment/Plan Assessment 1) Leukocytosis, resolved s/p empiric IV vanc/cefepime D#3 stopped yesterday 2) inhalational crack use, + wheezes on exam 3) CXR and exam negative for pneumonia 4) u/a w/o pyuria, and ucx not consistent with UTI, but cx growing MSSA concerning for IE (intravascular source) in this homeless patient with drug abuse, despite 03/07 blood cx ngtd Renal u/s could not evaluate L kidney (may be absent), and has some mild R hydro with some areas of possible inflammation vs mass s/p TTE with trace AI, trace MR, mild TR, with anterior pericardial fat, moderately thickened MV leaflets, mitral annulus calcification, but no obvious vegetation with negative blood cx 5) starvation ketosis 6) anion gap metabolic acidosis 7) mild rhabdomyolysis (CK 314), musculoskeletal exam unremarkable; resolved on repeat 8) elevated LDH of uncertain significance 9) viral hepatitis panel negative 10) blood cx ngtd at >72 hrs (drawn 03/07) 11) superficial healed scar on leg, no evidence of cellulitis 12) HIV screen negative PLAN: Continue IV cefazolin 2gm IV q8hr D#4 of therapy (03/09 s/p IV vanc/cefepime D#3) CT a/p with IV contrast to more definitively r/o r/o acute lobar nephronia which can be devoid of pyuria. monitor serum CO2, repeat BMP with AM labs Monitor CBC f/u 03/07 blood cx result Subjective Constitutional: Reports: no symptoms Cardiovascular: Reports: no symptoms Genitourinary: Reports: no symptoms Allergies: Coded Allergies: No Known Allergies (Unverified , 03/06/17) Objective Vital Signs Last 24 Hour Vital Signs Date Time Temp Pulse Resp B/P Pulse Ox O2 Delivery O2 Flow Rate FiO2 03/10/17 11:32 97.8 60 19 117/73 100 Room Air 03/10/17 08:16 67 18 Room Air 03/10/17 07:35 97.9 85 19 103/66 96 Room Air 03/10/17 03:57 98.1 75 18 119/84 100 Room Air 03/10/17 00:00 97.8 85 18 108/64 100 Room Air 03/09/17 21:24 68 16 Room Air 21 03/09/17 20:00 98.0 71 18 111/71 100 Room Air 03/09/17 16:00 98.4 72 20 117/76 100 Room Air Height (Feet): 5 Height (Inches): 8.00 Weight (Pounds): 130 Objective GEN: awake, alert, non toxic appearing, thin HEENT: Mild pale conjunctiva. oral mucosa dry, pharynx w/o exudate or effusion. No icterus. Head normocephalic, neck supple. NECK: No cervical LAD CHEST: diffuse end-expiratory wheezes HEART: S1 and S2, no murmurs, no rubs. ABDOMEN: soft, non tender, non distended, normoactive bowel sounds. no cva tenderness EXTREMITIES: No cyanosis, no clubbing, no edema. NEUROLOGIC: Awake, alert, no focal neurologic motor deficits. : no external lesions LYMPH: no LAD RECTAL: deferred Laboratory Tests Test 03/09/17 17:40 Sodium Level 130 mEQ/L (135-145) L Potassium Level 3.2 mEQ/L (3.4-4.9) L Chloride Level 94 mEQ/L (98-107) L Carbon Dioxide Level 25 mEQ/L (20-30) Anion Gap 11 (5-15) Blood Urea Nitrogen 6 mg/dL (7-23) L Creatinine 0.8 mg/dL (0.5-0.9) Estimat Glomerular Filtration Rate > 60 mL/min (>60) Glucose Level 179 mg/dL (74-106) H Calcium Level 8.2 mg/dL (8.6-10.2) L Imaging: Patient : RAMIRO MUHAMMAD Referring Physician: Wally Islas M.D. ID Number: [id number] Service Date: 03/09/17 : 1950 Report Date: 03/09/17 Gender: F Accession No.: [id number] Location: Procedure: US Renal Indication: Abnormal renal function tests Technique: Grayscale and duplex images of the kidneys, retroperitoneum, and bladder were obtained. Comparison:None Findings: Right kidney measures 12.2 cm in length. Left kidney could not be identified. Right kidney demonstrates normal echogenicity. There is mild right hydronephrosis. Equivocal small focal areas of increased echogenicity are seen centrally within the right renal parenchyma. Normal vascularity is demonstrated. Normal inferior vena cava. Bladder is empty. Impression: Equivocal focal areas of increased attenuation within the right renal parenchyma. Nonspecific, could represent areas of inflammation or mass. Further evaluation with CT should be considered. Mild right hydronephrosis Nonvisualized left kidney. Correlate with surgical history Empty bladder Current Medications Medications (Trade) Dose Ordered Sig/Farzaneh Route PRN Reason Start Time Stop Time Status Last Admin Dose Admin Acetaminophen (Tylenol) 650 mg Q4H PRN ORAL T>100.5 03/06/17 21:30 04/05/17 21:29 Albuterol/ Ipratropium (DuoNeb 0.5-3(2.5)mg/3ml) 3 ml Q4H PRN HHN Shortness of Breath 03/06/17 21:30 03/11/17 21:29 Cefazolin Sodium (Ancef 2gm/50ml premix) 50 ml @ 220 mls/hr Q8HR IV 03/09/17 22:00 03/14/17 21:59 03/10/17 15:21 Dextrose STAT PRN IV Hypoglycemia 03/06/17 21:30 04/05/17 21:29 Heparin Sodium (Porcine) (Heparin 5000 units/ml) 5,000 units EVERY 12 HOURS SUBQ 03/07/17 09:00 04/06/17 08:59 03/10/17 08:47 Insulin Aspart (NovoLOG) BEFORE MEALS AND HS SUBQ 03/07/17 06:30 04/06/17 06:29 03/10/17 12:40 Morphine Sulfate (Morphine Sulfate) 2 mg Q4H PRN IVP Moderate Pain (Pain Scale 4-6) 03/06/17 21:30 03/13/17 21:29 Nitroglycerin (Ntg) 0.4 mg Q5MIN X 3 DOSES PRN SL Prn Chest Pain 03/06/17 21:30 04/05/17 21:29 Ondansetron HCl (Zofran) 4 mg Q6H PRN IVP Nausea & Vomiting 03/06/17 21:30 04/05/17 21:29 Polyethylene Glycol (Miralax) 17 gm DAILYPRN PRN ORAL Constipation 03/06/17 21:30 04/05/17 21:29 Temazepam (Restoril) 15 mg HSPRN PRN ORAL Insomnia 03/06/17 21:30 03/13/17 21:29 Wally Islas M.D. Mar 10, 2017 15:40
[2017-03-10 16:00] VITALS: BP 116/75
[2017-03-10 20:00] VITALS: BP 100/66
--- NOTE | 2017-03-13 11:56 | Cardiology Report ---
APPROVED REPORT EXAM: Two-dimensional and M-mode echocardiogram with Doppler and color Doppler. INDICATION Vegetation M-Mode DIMENSIONS IVSd1.5 (0.7-1.1cm)Left Atrium (MM)2.8 (1.6-4.0cm) LVDd4.2 (3.5-5.6cm)Aortic Root3.4 (2.0-3.7cm) PWd0.8 (0.7-1.1cm)Aortic Cusp Exc.2.2 (1.5-2.0cm) LVDs2.7 (2.5-4.0cm) PWs1.7 cm Normal left ventricular chamber size, systolic function and wall motion. Left ventricular ejection fraction estimated to be 55-60 %. Mild left ventricular hypertrophy. Anterior Echo-free space, may be due to pericardial fat or effusion. All other cardiac chamber sizes are within normal limits. Moderate focal aortic valve sclerosis with adequate cusp excursion. Moderately thickened mitral valve leaflets with normal excursion. Mitral annulus and aortic root calcification. Pulmonic valve not well visualized. Normal tricuspid valve structure. IVC at normal size and collapsing with respiration. No discrete vegetations seen, however SBE may not be excluded by transthoracic 2-D echo. Consider SHANNON if clinically indicated. A color flow and spectral Doppler study was performed and revealed: Trace aortic insufficiency. Trace mitral regurgitation. Mitral diastolic velocities suggest mild diastolic dysfunction (grade I). Mild tricuspid regurgitation. Tricuspid systolic velocities suggests peak right ventricular systolic pressure of 33 mmHg.
--- NOTE | 2017-03-13 13:07 | Discharge Summary ---
Discharge Summary Hospital Course Date of Admission Mar 06, 2017 at 19:54 Date of Discharge Mar 10, 2017 at 21:55 Admitting Diagnosis FAILURE TO THRIVE, WEAKNESS HPI Gisela Gil is a 66 year old female who was admitted on Mar 06, 2017 at 19 :54 for Failure To Thrive/Weakness Hospital Course dc summary #[id number] Discharge Medications New Medications: Cefazolin Sodium in 0.9 % NaCl (Cefazolin 2 G/100 ml-0.9% NaCl) 2 Gm/100 Ml Plast..bag 2 GM IV Q8HR for 6 Days, #18 BAG Insulin Aspart (Novolog Flexpen) 100 Unit/1 Ml Insuln.pen 0 UNITS SUBQ BEFORE MEALS AND HS for 30 Days, EA Discharge Condition Upon Discharge: stable Discharge Disposition Patient was discharged to SNF/Subacute Facility(03) [facility] NINA Mar 13, 2017 13:07
[2017-03-13] MEDS ORDERED: CEFAZOLIN2 GM/100 M IV (13:28)
--- NOTE | 2017-03-13 18:45 | Discharge Summary 2 SIG ---
DATE OF ADMISSION: 03/06/2017 DATE OF DISCHARGE: 03/10/2017 The patient is admitted under Dr. Chang. REASON FOR ADMISSION: This is a 66-year-old female, homeless with history of drug abuse, was brought by dietetic technician registered for evaluation. The patient was found to have severe leukocytosis, WBC 17.1 and evidence of dehydration with BUN of 29 and creatinine 1.2. Troponin was negative. EKG shows normal sinus rhythm. Chest x-ray revealed no acute cardiopulmonary disease. Blood pressure was stable. Pulse oximetry was stable on room air. The patient was admitted for further management. ADMITTING DIAGNOSES: Includes: 1. Possible sepsis. 2. Leukocytosis. 3. Severe protein-calorie malnutrition. 4. Diabetes mellitus. 5. Drug abuse. 6. Homelessness. HOSPITAL STAY: The patient was admitted. The patient was started on empiric antibiotics. ID consult was requested. Urine culture revealed Staph aureus. Blood cultures were negative. ID closely followed. Leukocytosis resolved. Due to the urine culture growing Staph aureus, there was concern for IE in this homeless patient with drug abuse despite the followed blood cultures were negative. Renal ultrasound could not evaluate left kidney (possibly absent) and had some mild right hydronephrosis with areas of possible inflammation versus mass. The patient is status post echo with trace of aortic insufficiency, trace mitral regurgitation, mild tricuspid regurgitation, anterior pericardial fat, moderately thickened mitral valve leaflets, mitral anulus calcification, but no obvious vegetation was seen. Blood culture negative. ID ordered CT of the abdomen and pelvis to better delineate the area of possible mass, however, the patient declined the test. Supplemental oxygen and pulmonary toilet provided as needed. Chest x-ray was negative for any acute cardiopulmonary pathology. Blood sugar was managed with sliding scale of insulin. DVT prophylaxis provided. Human immunodeficiency virus and hepatitis panel were both negative. The patient was working with physical occupational therapy. Initially on admission, the patient demonstrated evidence of mild rhabdomyolysis. CK was trending and down to normal. No evidence of muscle injury. Acute kidney injury resolved. It was likely due to possible dehydration along with mild rhabdomyolysis. Hemoglobin and hematocrit were closely monitored and remained stable at baseline. Transfuse only p.r.n. with goal to keep hemoglobin above 7. Anemia workup revealed stable iron. Mildly elevated CEA of 3.9. Placement was found in [facility]. The patient was stable for discharge with antibiotics as outlined by ID. DISCHARGE DIAGNOSES: Includes: 1. Sepsis. 2. Urinary tract infection with Staph aureus. 3. Diabetes mellitus. 4. Drug abuse/cocaine. 5. Homelessness. 6. Severe protein-calorie malnutrition. 7. Metabolic acidosis. 8. Mild rhabdomyolysis, resolved. 9. Anemia of chronic disease. 10. Acute kidney injury likely secondary to mild rhabdomyolysis and dehydration, resolved. Of note, the patient appeared cachectic. Dietary evaluation was requested and the patient needs further followup at the long term facility since was not in the contact with nutrition. Faraz Chang M.D. I have been assigned to dictate discharge summary on this account and I was not involved in the patient's management. Mariposa alvareztalat NHunterPHunter DR: DALIA JOB#: [id number] CC:
== END 2017-03-10 21:55 | DRG 720 ==
LOC: EDBD 15:47 → EMR 17:37 → 4W 19:54 → EDBEDREQ 22:04 → 4W 03-07 01:18 → 4E 03-07 10:20
DX: A41.9 Sepsis, unspecified organism (principal); E43 Unspecified severe protein-calorie malnutrition; N17.9 Acute kidney failure, unspecified; M62.82 Rhabdomyolysis; E11.9 Type 2 diabetes mellitus without complications; D63.8 Anemia in other chronic diseases classified elsewhere; E86.0 Dehydration; F19.10 Other psychoactive substance abuse, uncomplicated; Z59.0 Homelessness; N39.0 Urinary tract infection, site not specified; B95.61 Methicillin susceptible Staphylococcus aureus infection as the cause of diseases classified elsewhere; F14.10 Cocaine abuse, uncomplicated; I36.1 Nonrheumatic tricuspid (valve) insufficiency
CPT/HCPCS: 36415; 71010; 76775; 80048; 80053; 80202; 81003; 82009; 82378; 82550; 82553; 82607; 82746; 82962; 83540; 83550; 83615; 84484; 85007; 85025; 85044; 85060; 85610; 85651; 85730; 86703; 86705; 86709; 86803; 87040; 87081; 87086; 87181; 87340; 87535; 93005; 93306; 94664; J1815; J7620